=== PATIENT | female | born 1985 | race African-American/Black ===

== ENCOUNTER 2016-09-20 20:12 | Emergency (ER) | payer SELFPAY ==
[~2016-09-20] VITALS: Ht 182.9 cm; Wt 60.5 kg
[2016-09-20 20:15] VITALS: BP 124/59; PULSE 118; RESP 16; TEMP 101.2; O2SAT 95
--- NOTE | 2016-09-20 20:56 | PD ---
Physical Exam Time Seen by Provider: 20:53 Narrative 31 year old female presents to ED for evaluation of fever, body aches, fever, cough and chest congestion worsening over the last two days. Pt denies N/V. Has had an episode of diarrhea. No chest pain. Medical history is significant for asthma. No other symptoms to report. Data Data Last Documented VS Vital Signs Date Time Temp Pulse Resp B/P Pulse Ox O2 Delivery O2 Flow Rate FiO2 09/20/16 20:15 101.2 118 16 124/59 95 MDM Medical Record Reviewed: Yes Supervised Visit with ALFREDITO: No Narrative Course 31 year old female presents to ED for evaluation of fever, chills, body aches, cough, and chest congestion. Febrile and tachycardic in triage. Appears otherwise without distress. Scripts No Active Prescriptions or Reported Meds Condition: Stable Nicole Garcias Sep 20, 2016 20:56
[2016-09-20] MEDS ORDERED: SODIUM CHLOR 0.9% 1000 ML INJ 1,000 ML IV ONE (22:06)
[2016-09-20] MEDS ORDERED: SODIUM CHLOR 0.9% 1000 ML INJ 800 ML IV ONE (22:06)
[2016-09-20] MEDS ORDERED: ACETAMINOPHEN 325 MG TAB PO ONE (22:15)
--- NOTE | 2016-09-20 22:23 | RADRPT ---
EXAM DATE/TIME: 09/20/2016 22:03 [facility] COMPARISON: No previous studies available for comparison. INDICATIONS : Fever MEDICAL HISTORY : Asthma SURGICAL HISTORY : None. ENCOUNTER: Initial ACUITY: 3 days PAIN SCORE: 0/10 LOCATION: Bilateral chest FINDINGS: A single view of the chest demonstrates the lungs to be symmetrically aerated without evidence of mas s, infiltrate or effusion. The cardiomediastinal contours are unremarkable. Osseous structures are intact. CONCLUSION: No evidence of acute cardiopulmonary disease. Nasir Caldwell MD on September 20, 2016 at 22:21 Board Certified Radiologist. This report was verified electronically.
[2016-09-20 22:56] LABS: AUTOMATED NEUTROPHIL # 7.8 TH/MM3 (1.8-7.7); BASOPHIL # 0.1 TH/MM3 (0-0.2); BASOPHIL % 0.5 % (0.0-2.0); EOSINOPHIL # 0.2 TH/MM3 (0-0.4); EOSINOPHIL % 1.6 % (0.0-4.0); HEMATOCRIT 33.6 % (35.0-46.0); LYMPH % 14.8 % (9.0-44.0); LYMPHOCYTE # 1.6 TH/MM3 (1.0-4.8); MEAN CORPUSCULAR HEMOGLOBIN 21.8 PG (27.0-34.0); MEAN CORPUSCULAR HGB CONC 30.6 % (32.0-36.0); MONO % 9.7 % (0.0-8.0); NEUT % 73.4 % (16.0-70.0); PLATELET COUNT 340 TH/MM3 (150-450); RED BLOOD COUNT 4.73 MIL/MM3 (4.00-5.30); RED CELL DISTRIBUTION WIDTH 18.7 % (11.6-17.2); WHITE BLOOD COUNT 10.6 TH/MM3 (4.0-11.0)
[2016-09-20 23:01] LABS: HEMO FLAGS AUTO DIFF
[2016-09-20 23:23] LABS: ANION GAP 9 MEQ/L (5-15); AST (GOT) 17 U/L (15-37); BICARBONATE 25.2 MEQ/L (21.0-32.0); BLOOD UREA NITROGEN 8 MG/DL (7-18); CHLORIDE 103 MEQ/L (98-107); GLOMERULAR FILTRATION RATE 122 ML/MIN (>89); POTASSIUM 4.2 MEQ/L (3.5-5.1); SODIUM (NA) 137 MEQ/L (136-145)
[2016-09-20 23:27] LABS: ALKALINE PHOSPHATASE 78 U/L (45-117); ALT (GPT) 11 U/L (10-53); TOTAL BILIRUBIN ADULT 0.3 MG/DL (0.2-1.0)
--- NOTE | 2016-09-20 23:30 | PD ---
HPI Chief Complaint: Fever Time Seen by Provider: 22:05 Travel History International Travel<30 days: No Contact w/Intl Traveler<30days: No Traveled to known affect area: No History of Present Illness HPI 31-year-old female arrives with total body aches, rhinorrhea, dyspnea, cough, fever and chills. 2 days in duration. Unknown sick contacts. Patient smokes tobacco. She has a cough with phlegm. Severity moderate. Onset gradual. Timing constant. PFSH Past Medical History Asthma: Yes (AND BRONCHITIS) Diminished Hearing: No Immunizations Current: No Tetanus Vaccination: Unknown Influenza Vaccination: No ?: Not LMP: LAST WEEK : 2 Para: 1 Miscarriage: 1 : 1 Social History Alcohol Use: Yes (OCC) Tobacco Use: Yes (PT SMOKES BLACK AND MILDS, STATES SHE SMOKES "A LOT") Substance Use: No Allergies-Medications (Allergen,Severity, Reaction): Coded Allergies: Motrin (Verified Allergy, Intermediate, RASH, 09/20/16) Dust (Verified Allergy, Mild, AIRWAY REACTION, 09/20/16) Reported Meds & Prescriptions Reported Meds & Active Scripts Active Prednisone 20 Mg Tab 40 Mg PO DAILY 4 Days Take 40 mg (2 tablets) daily for 5 days Azithromycin 250 Mg Tab 250 Mg PO DAILY 4 Days Review of Systems Except as stated in HPI: all other systems reviewed are Neg General / Constitutional: Positive: Fever, Chills Respiratory: Positive: Cough, Shortness of Breath Physical Exam Narrative GENERAL: 31-year-old female well-nourished well-developed SKIN: Focused skin assessment warm/dry. HEAD: Atraumatic. Normocephalic. EYES: Pupils equal and round. No scleral icterus. No injection or drainage. ENT: No nasal bleeding or discharge. Mucous membranes pink and moist. NECK: Trachea midline. No JVD. CARDIOVASCULAR: Minimal tachycardia. Regular rhythm. RESPIRATORY: Wheezing bilaterally. Coarse breath sounds bilaterally. GASTROINTESTINAL: Abdomen soft, non-tender, nondistended. Hepatic and splenic margins not palpable. MUSCULOSKELETAL: No obvious deformities. No clubbing. No cyanosis. No edema. NEUROLOGICAL: Awake and alert. No obvious cranial nerve deficits. Motor grossly within normal limits. Normal speech. PSYCHIATRIC: Appropriate mood and affect; insight and judgment normal. Data Data Last Documented VS Vital Signs Date Time Temp Pulse Resp B/P Pulse Ox O2 Delivery O2 Flow Rate FiO2 4/18/17 01:35 98.7 104 19 117/64 97 09/21/16 00:12 22 Orders Complete Blood Count With Diff (09/20/16 22:06) Comprehensive Metabolic Panel (09/20/16 22:06) Lactic Acid Sepsis Protocol (09/20/16 22:06) Urinalysis - C+S If Indicated (09/20/16 22:06) Influenzae A/B Antigen (09/20/16 22:06) Blood Culture (09/20/16 22:06) Chest, Single Ap (09/20/16 22:06) Blood Glucose (09/20/16 22:06) Ecg Monitoring (09/20/16 22:06) Iv Access Insert/Monitor (09/20/16 22:06) Oximetry (09/20/16 22:06) Oxygen Administration (09/20/16 22:06) Acetaminophen (Tylenol) (09/20/16 22:15) Sodium Chlor 0.9% 1000 Ml Inj (Ns 1000 M (09/20/16 22:06) Sodium Chlor 0.9% 1000 Ml Inj (Ns 1000 M (09/20/16 22:06) Albuterol-Ipratropium Neb (Duoneb Neb) (09/20/16 23:30) Albuterol Hfa Inh (Proair Hfa Inh) (09/21/16 00:30) Methylprednisolone So Succ Inj (Solumedr (09/21/16 00:30) Labs Laboratory Tests Test 09/20/16 09/20/16 22:39 22:40 Sodium Level 137 MEQ/L Potassium Level 4.2 MEQ/L Chloride Level 103 MEQ/L Carbon Dioxide Level 25.2 MEQ/L Anion Gap 9 MEQ/L Blood Urea Nitrogen 8 MG/DL Creatinine 0.69 MG/DL Estimat Glomerular Filtration 122 ML/MIN Rate Random Glucose 89 MG/DL Calcium Level 9.1 MG/DL Total Bilirubin 0.3 MG/DL Aspartate Amino Transf 17 U/L (AST/SGOT) Alanine Aminotransferase 11 U/L (ALT/SGPT) Alkaline Phosphatase 78 U/L Total Protein 8.6 GM/DL Albumin 4.0 GM/DL White Blood Count 10.6 TH/MM3 Red Blood Count 4.73 MIL/MM3 Hemoglobin 10.3 GM/DL Hematocrit 33.6 % Mean Corpuscular Volume 71.0 FL Mean Corpuscular Hemoglobin 21.8 PG Mean Corpuscular Hemoglobin 30.6 % Concent Red Cell Distribution Width 18.7 % Platelet Count 340 TH/MM3 Mean Platelet Volume 8.6 FL Neutrophils (%) (Auto) 73.4 % Lymphocytes (%) (Auto) 14.8 % Monocytes (%) (Auto) 9.7 % Eosinophils (%) (Auto) 1.6 % Basophils (%) (Auto) 0.5 % Neutrophils # (Auto) 7.8 TH/MM3 Lymphocytes # (Auto) 1.6 TH/MM3 Monocytes # (Auto) 1.0 TH/MM3 Eosinophils # (Auto) 0.2 TH/MM3 Basophils # (Auto) 0.1 TH/MM3 CBC Comment AUTO DIFF Differential Comment AUTO DIFF CONFIRMED Lactic Acid Level 1.0 mmol/L [facility] Medical Decision Making Medical Screen Exam Complete: Yes Emergency Medical Condition: Yes Medical Record Reviewed: Yes Differential Diagnosis Pneumonia, UTI, influenza, viral syndrome, influenza Narrative Course CBC & BMP Diagram 09/20/16 22:39 Lactic acid 1.0 LFTs normal Last 24 hours Impressions Chest X-Ray 09/20/162205 Signed Impressions: Service Date/Time: Tuesday, September 20, 2016 22:03 - CONCLUSION: No evidence of acute cardiopulmonary disease. Nasir Caldwell MD Chest x-ray is read as normal however the patient has had a cough and shortness of breath along with fever and myalgias. Viral syndrome and/or pneumonia is of concern. We'll provide azithromycin and inhaler. Diagnosis Primary Impression: Fever Qualified Code: R50.9 - Fever, unspecified fever cause Additional Impressions: Cough Shortness of breath Referrals: Primary Care Physician 2 days Additional Instructions: You have a choice when it comes to health care, and we are glad that you chose [facility]. Hopefully, we have met your expectations on today's visit. You are welcome to return to [facility] at any time, as we are committed to meeting the health care needs of our community. Med/Other Pt SpecificInfo: Prescription(s) given Scripts Prednisone 20 Mg Tab40 Mg PO DAILY 4 Days Ref 0 Take 40 mg (2 tablets) daily for 5 days Prov:Surinder Tomas MD 4/18/17 Azithromycin 250 Mg [id number] Mg PO DAILY 4 Days Ref 0 Prov:Surinder Tomas MD 09/21/16 Disposition: 01 DISCHARGE HOME Condition: Stable Surinder Tomas MD Sep 20, 2016 23:30
[2016-09-21 00:12] VITALS: O2SAT 95
[2016-09-21] MEDS: RESP: ALBUTEROL 2.5 MG/IPRATROPIUM 0.5 MG NEB (SCH) INH ×2 (00:12→00:13)
[2016-09-21] MEDS ORDERED: AZIT250T3 PO (00:26)
[2016-09-21] MEDS ORDERED: PRED20 PO (00:26)
[2016-09-21] MEDS ORDERED: ALBUTEROL SULFATE 90 MCG/ACT HFA 8 GM INHALER INH ONE (00:30)
[2016-09-21] MEDS ORDERED: methylPREDNISolone SOD SUCC 125 MG/2 ML VIAL IV PUSH ONE (00:30)
[2016-09-21 01:15] LABS: SCAN/DIFF AUTO DIFF CONFIRMED
[2016-09-21 01:35] VITALS: BP 117/64; TEMP 98.7
== END 2016-09-21 01:55 | disposition home or self-care (01) ==
LOC: NEPD 20:12
DX: R50.9 Fever, unspecified (principal); R06.02 Shortness of breath; R05 Cough
CPT/HCPCS: 71010; 80053; 83605; 85025; 87040; 87804; 94640; 94664; 96374; 99283; J2930; J7030

== ENCOUNTER 2016-10-30 02:23 | Emergency (ER) | payer SELFPAY ==
[~2016-10-30 02:23] MED LIST: AZIT250T3 PO; PRED20 PO
[2016-10-30 02:26] VITALS: BP 129/59; PULSE 119; RESP 14; TEMP 102.4; O2SAT 94
--- NOTE | 2016-10-30 02:47 | PD ---
HPI Chief Complaint: Cold / Flu Symptoms Time Seen by Provider: 02:47 Travel History International Travel<30 days: No Contact w/Intl Traveler<30days: No Traveled to known affect area: No History of Present Illness HPI 31-year-old female came to the emergency room with history of fever and generalized body ache since yesterday. And says at home her temperature was 104. She took Motrin 800 mg prior to coming in. Her temperature here was 102. She is nauseous but no vomiting. She says she hurts everywhere. She has been coughing some but also has history of asthma. She was tachycardic in triage. Besides asthma she is otherwise a healthy person. She is not a smoker. No known sick contacts. [facility] Past Medical History Narrative Medical List of her past medical, surgical, social and family history was reviewed from the nursing note. Asthma: Yes (AND BRONCHITIS) Diminished Hearing: No Immunizations Current: No ?: Not : 2 Para: 1 Miscarriage: 1 : 1 Social History Alcohol Use: Yes ([facility]) Tobacco Use: Yes (PT SMOKES BLACK AND MILDS, STATES SHE SMOKES "A LOT") Substance Use: No Allergies-Medications (Allergen,Severity, Reaction): Coded Allergies: No Known Allergies (Unverified , 10/30/16) Comments No known drug allergies. Reported Meds & Prescriptions Reported Meds & Active Scripts Active Ventolin Hfa 18 GM Inh (Albuterol Sulfate) 90 Mcg/Act Aer 2 Puff INH Q4-6H PRN Prednisone 20 Mg Tab 40 Mg PO DAILY 4 Days Take 40 mg (2 tablets) daily for 5 days Azithromycin 250 Mg Tab 250 Mg PO DAILY 4 Days Narrative Medication List of her home medications reviewed from the nursing note. Review of Systems Except as stated in HPI: all other systems reviewed are Neg Physical Exam Narrative GENERAL: Awake, alert, moderate distress SKIN: Focused skin assessment warm/dry. HEAD: Atraumatic. Normocephalic. EYES: Pupils equal and round. No scleral icterus. No injection or drainage. ENT: No nasal bleeding or discharge. Mucous membranes pink and moist. NECK: Trachea midline. No JVD. CARDIOVASCULAR: Regular rate and rhythm. No murmur appreciated. RESPIRATORY: No accessory muscle use. Coarse breath sounds with some end expiratory wheeze. GASTROINTESTINAL: Abdomen soft, non-tender, nondistended. Hepatic and splenic margins not palpable. MUSCULOSKELETAL: No obvious deformities. No clubbing. No cyanosis. No edema. NEUROLOGICAL: Awake and alert. No obvious cranial nerve deficits. Motor grossly within normal limits. Normal speech. PSYCHIATRIC: Appropriate mood and affect; insight and judgment normal. Data Data Last Documented VS Vital Signs Date Time Temp Pulse Resp B/P Pulse Ox O2 Delivery O2 Flow Rate FiO2 10/30/16 07:49 99.4 110 18 128/61 95 10/30/16 07:46 Room Air Orders Complete Blood Count With Diff (10/30/16 02:48) Comprehensive Metabolic Panel (10/30/16 02:48) Lactic Acid Sepsis Protocol (10/30/16 02:48) Urinalysis - C+S If Indicated (10/30/16 02:48) Influenzae A/B Antigen (10/30/16 02:48) Blood Culture (10/30/16 02:48) Chest, Single Ap (10/30/16 02:48) Blood Glucose (10/30/16 02:48) Ecg Monitoring (10/30/16 02:48) Iv Access Insert/Monitor (10/30/16 02:48) Oximetry (10/30/16 02:48) Oxygen Administration (10/30/16 02:48) Sodium Chlor 0.9% 1000 Ml Inj (Ns 1000 M (10/30/16 02:48) Sodium Chlor 0.9% 1000 Ml Inj (Ns 1000 M (10/30/16 02:48) Sodium Chlor 0.9% 1000 Ml Inj (Ns 1000 M (10/30/16 02:48) Albuterol Neb (Albuterol Neb) (10/30/16 05:30) Albuterol Neb (Albuterol Neb) (10/30/16 06:30) Labs Laboratory Tests Test 10/30/16 10/30/16 10/30/16 02:34 03:45 04:51 Lactic Acid Level 0.8 mmol/L White Blood Count 4.4 TH/MM3 Red Blood Count 4.27 MIL/MM3 Hemoglobin 9.5 GM/DL Hematocrit 30.4 % Mean Corpuscular Volume 71.3 FL Mean Corpuscular Hemoglobin 22.2 PG Mean Corpuscular Hemoglobin 31.0 % Concent Red Cell Distribution Width 17.1 % Platelet Count 167 TH/MM3 Mean Platelet Volume 8.9 FL Neutrophils (%) (Auto) 78.3 % Lymphocytes (%) (Auto) 13.3 % Monocytes (%) (Auto) 7.9 % Eosinophils (%) (Auto) 0.0 % Basophils (%) (Auto) 0.5 % Neutrophils # (Auto) 3.5 TH/MM3 Lymphocytes # (Auto) 0.6 TH/MM3 Monocytes # (Auto) 0.4 TH/MM3 Eosinophils # (Auto) 0.0 TH/MM3 Basophils # (Auto) 0.0 TH/MM3 CBC Comment DIFF FINAL Differential Comment Sodium Level 134 MEQ/L Potassium Level 3.5 MEQ/L Chloride Level 99 MEQ/L Carbon Dioxide Level 26.1 MEQ/L Anion Gap 9 MEQ/L Blood Urea Nitrogen 10 MG/DL Creatinine 0.70 MG/DL Estimat Glomerular Filtration 120 ML/MIN Rate Random Glucose 89 MG/DL Calcium Level 8.2 MG/DL Total Bilirubin 0.3 MG/DL Aspartate Amino Transf 28 U/L (AST/SGOT) Alanine Aminotransferase 10 U/L (ALT/SGPT) Alkaline Phosphatase 58 U/L Total Protein 7.5 GM/DL Albumin 3.5 GM/DL Urine Color YELLOW Urine Turbidity HAZY Urine pH 5.5 Urine Specific [place] 1.009 Urine Protein NEG mg/dL Urine Glucose (UA) NEG mg/dL Urine Ketones 10 mg/dL Urine Occult Blood NEG Urine Nitrite NEG Urine Bilirubin NEG Urine Urobilinogen LESS THAN 2.0 MG/DL Urine Leukocyte Esterase NEG Urine RBC 1 /hpf Urine WBC 3 /hpf Urine Squamous Epithelial 1 /hpf Cells Urine Mucus MOD /lpf Microscopic Urinalysis Comment CATH-CULT NOT IND MDM Medical Decision Making Medical Screen Exam Complete: Yes Emergency Medical Condition: Yes Medical Record Reviewed: Yes Differential Diagnosis Pneumonia, UTI, sepsis, viral illness, influenza Narrative Course 5:25 AM blood test results came back and they're within acceptable limits. Chest x-ray was negative. Patient was given 2 albuterol nebulizers and I will discharge her home. She was given IV fluid boluses as well. Procedures EKG Prior to Arrival: No Diagnosis Primary Impression: Fever Qualified Code: R50.9 - Fever, unspecified fever cause Additional Impressions: Viral illness Anemia Qualified Code: D64.9 - Anemia, unspecified type Referrals: Primary Care Physician Additional Instructions: Continue taking Motrin and/or Tylenol for fever. Drink lots of fluid. Please return to the ER if the condition worsens or any other new concerns. Otherwise follow-up with your physician on Tuesday. Med/Other Pt SpecificInfo: Prescription(s) given, No Change to Meds Scripts Albuterol 18 GM Inh (Ventolin Hfa 18 GM Inh)90 Mcg/Act Aer2 Puff INH Q4-6H PRN ( SHORTNESS OF BREATH) #1 INHALER Ref 0 Prov:Selwyn Oshea MD 10/30/16 Disposition: 01 DISCHARGE HOME Condition: Stable Selwyn Oshea MD October 30, 2016 02:47
[2016-10-30] MEDS ORDERED: SODIUM CHLOR 0.9% 1000 ML INJ 1,000 ML IV ONE ×2 (02:48)
[2016-10-30] MEDS ORDERED: SODIUM CHLOR 0.9% 1000 ML INJ 400 ML IV ONE (02:48)
--- NOTE | 2016-10-30 03:08 | RADRPT ---
EXAM DATE/TIME: 10/30/2016 03:00 [facility] COMPARISON: CHEST SINGLE AP, September 20, 2016, 22:03. INDICATIONS : Fever, chills, and body aches x 1 day. MEDICAL HISTORY : None. SURGICAL HISTORY : None. ENCOUNTER: Initial ACUITY: 1 day PAIN SCORE: 7/10 LOCATION: Bilateral chest FINDINGS: A single view of the chest demonstrates the lungs to be symmetrically aerated without evidence of mas s, infiltrate or effusion. The cardiomediastinal contours are unremarkable. Osseous structures are intact. CONCLUSION: Normal examination. Ti De Souza MD on October 30, 2016 at 3:06 Board Certified Radiologist. This report was verified electronically.
[2016-10-30 03:26] VITALS: BP 119/61; PULSE 105; RESP 19; O2SAT 91
[2016-10-30 04:09] LABS: AUTOMATED NEUTROPHIL # 3.5 TH/MM3 (1.8-7.7); BASOPHIL % 0.5 % (0.0-2.0); HEMATOCRIT 30.4 % (35.0-46.0); HEMO FLAGS DIFF FINAL; LYMPH % 13.3 % (9.0-44.0); LYMPHOCYTE # 0.6 TH/MM3 (1.0-4.8); MEAN CELL VOLUME 71.3 FL (80.0-100.0); MEAN CORPUSCULAR HEMOGLOBIN 22.2 PG (27.0-34.0); MONO % 7.9 % (0.0-8.0); NEUT % 78.3 % (16.0-70.0); PLATELET COUNT 167 TH/MM3 (150-450); RED BLOOD COUNT 4.27 MIL/MM3 (4.00-5.30); RED CELL DISTRIBUTION WIDTH 17.1 % (11.6-17.2); WHITE BLOOD COUNT 4.4 TH/MM3 (4.0-11.0)
[2016-10-30 04:30] LABS: ANION GAP 9 MEQ/L (5-15); AST (GOT) 28 U/L (15-37); BICARBONATE 26.1 MEQ/L (21.0-32.0); BLOOD UREA NITROGEN 10 MG/DL (7-18); CHLORIDE 99 MEQ/L (98-107); GLOMERULAR FILTRATION RATE 120 ML/MIN (>89); POTASSIUM 3.5 MEQ/L (3.5-5.1); SODIUM (NA) 134 MEQ/L (136-145)
[2016-10-30 04:34] LABS: ALKALINE PHOSPHATASE 58 U/L (45-117); ALT (GPT) 10 U/L (10-53); TOTAL BILIRUBIN ADULT 0.3 MG/DL (0.2-1.0)
[2016-10-30 05:00] LABS: BLOOD, URINE NEG (NEG); COMMENT (UR) CATH-CULT NOT IND; CULTURE IF INDICATED CATH CULTURE NOT IND; GLUCOSE,URINE NEG (NEG); KETONE, URINE 10 mg/dL (NEG); MUCUS URINE MOD /lpf (OCC); NITRITE,URINE NEG (NEG); PH, URINE 5.5 (5.0-8.5); SQUAMOUS EPITHELIAL CELL URINE 1 /hpf (0-5); URINE COLOR YELLOW (YELLW/STRAW)
[2016-10-30] MEDS ORDERED: VENTAER INH (05:22)
[2016-10-30 05:59] VITALS: O2SAT 94
[2016-10-30] MEDS: RESP: ALBUTEROL 2.5 MG/3 ML NEB (SCH) INH (05:59)
[2016-10-30] MEDS ORDERED: RESP: ALBUTEROL 2.5 MG/3 ML NEB (SCH) NEB ONE (06:30)
[2016-10-30 06:33] VITALS: O2SAT 96
[2016-10-30 07:46] VITALS: BP 128/61; PULSE 110; RESP 18; TEMP 99.4; O2SAT 95
[2016-10-30 07:49] VITALS: BP 128/61; TEMP 99.4
== END 2016-10-30 08:11 | disposition home or self-care (01) ==
LOC: NEPE 02:23
DX: R50.9 Fever, unspecified (principal); B34.9 Viral infection, unspecified; D64.9 Anemia, unspecified; F17.210 Nicotine dependence, cigarettes, uncomplicated; R11.0 Nausea; J45.909 Unspecified asthma, uncomplicated
CPT/HCPCS: 71010; 80053; 81001; 83605; 85025; 87040; 87804; 94640; 94664; 96360; 99284; J7030; J7613

== ENCOUNTER 2017-05-09 11:38 | Emergency (ER) | payer SELFPAY ==
[~2017-05-09 11:38] MED LIST changes: +VENTAER INH
[2017-05-09 11:39] VITALS: BP 117/70; PULSE 94; RESP 16; TEMP 98; O2SAT 100
--- NOTE | 2017-05-09 13:42 | RADRPT ---
EXAM DATE/TIME: 05/09/2017 12:27 [facility] COMPARISON: No previous studies available for comparison. INDICATIONS : Patient states right hip pain after falling down the stairs this morning. MEDICAL HISTORY : None. SURGICAL HISTORY : Right Hip pin ENCOUNTER: Initial ACUITY: 1 day PAIN SCORE: 8/10 LOCATION: Right Hip FINDINGS: AP view of the pelvis with 3 views of the right hip joint demonstrate no fracture or dislocation. Min eralization is within normal limits. Left hip joint is normal. The right proximal femur demonstrates abnormal shape of the head and neck suggesting an old healed slipped capital femoral purposes. A sing le screw traverses the femoral head and neck. There are osteophytes on the femoral head neck junction and there is joint space narrowing and acetabular osteophyte. No soft tissue abnormality or radiopaq ue foreign body is identified. CONCLUSION: 1. No acute right hip abnormality is identified. 2. 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 Nasir Schilling MD on May 09, 2017 at 13:32 Board Certified Radiologist. This report was verified electronically.
--- NOTE | 2017-05-09 13:44 | PD ---
HPI . Slip and fall Chief Complaint: Injury Time Seen by Provider: 12:42 Travel History International Travel<30 days: No Contact w/Intl Traveler<30days: No Traveled to known affect area: No History of Present Illness HPI 31-year-old female presents emergency department for evaluation after slipping while walking down stairs this morning. Patient has right knee pain and right hip pain after falling. Patient denies hitting her head or losing consciousness. Patient is not on any blood thinners. Patient has been ambulatory since the fall. Patient denies any chest pain, shortness breath, nausea, vomiting, diarrhea, abdominal pain, lightheadedness or dizziness. PFSH Past Medical History Asthma: Yes (AND BRONCHITIS) Diminished Hearing: No Immunizations Current: No ?: Not : 2 Para: 1 Miscarriage: 1 : 1 Social History Alcohol Use: Yes (OCC) Tobacco Use: Yes (PT SMOKES BLACK AND MILDS, STATES SHE SMOKES "A LOT") Substance Use: No Allergies-Medications (Allergen,Severity, Reaction): Coded Allergies: No Known Allergies (Unverified , 10/30/16) Reported Meds & Prescriptions Reported Meds & Active Scripts Active Ventolin Hfa 18 GM Inh (Albuterol Sulfate) 90 Mcg/Act Aer 2 Puff INH Q4-6H PRN Prednisone 20 Mg Tab 40 Mg PO DAILY 4 Days Take 40 mg (2 tablets) daily for 5 days Azithromycin 250 Mg Tab 250 Mg PO DAILY 4 Days Review of Systems Except as stated in HPI: all other systems reviewed are Neg Physical Exam Narrative GENERAL: Well-nourished, well-developed 31-year-old female patient in no acute distress. Nontoxic appearing. SKIN: Focused skin assessment warm/dry. HEAD: Normocephalic. Atraumatic. EYES: No scleral icterus. No injection or drainage. NECK: Supple, trachea midline. No JVD or lymphadenopathy. CARDIOVASCULAR: Regular rate and rhythm without murmurs, gallops, or rubs. Pedal pulses +2 bilaterally. RESPIRATORY: Breath sounds equal bilaterally. No accessory muscle use. GASTROINTESTINAL: Abdomen soft, non-tender, nondistended. MUSCULOSKELETAL: Right knee edematous. Full range of motion with extension and slightly limited range of motion with flexion. No obvious deformity, erythema or cyanosis.. BACK: Nontender without obvious deformity. No CVA tenderness. Data Data Last Documented VS Vital Signs Date Time Temp Pulse Resp B/P (MAP) Pulse Ox O2 Delivery O2 Flow Rate FiO2 05/09/17 11:39 98.0 94 16 117/70 (86) 100 Orders Orders Hip, Uni(Ap&Lat) W Ap Pelvis (05/09/17 ) Knee, Complete (4vws) (05/09/17 ) MDM Medical Decision Making Medical Screen Exam Complete: Yes Emergency Medical Condition: Yes Differential Diagnosis Differential diagnoses include but not limited to right knee sprain, right knee strain, right knee contusion, right hip contusion, fracture, fall Narrative Course 31-year-old female presents to emergency room for evaluation of right hip pain and right knee pain after slipping and falling this point. X-ray of the right knee and hip ordered and pending. No acute abnormality noted in the right hip x -ray. Effusion of the right knee noted in the right knee x-ray. Patient is discharged with Rice therapy instructions for the right knee and the knee is Michael wrap and patient discharged with crutches. Patient instructed to return the emergency Department with any worsening condition and to follow-up with orthopedics for possible draining of the effusion. Last Impressions Knee X-Ray 05/09/17 0000 Signed Impressions: Service Date/Time: Tuesday, May 09, 2017 12:27 - CONCLUSION: Large joint effusion. No acute osseous abnormality is identified. Nasir Schilling MD Hip and Pelvis X-Ray 05/09/17 0000 Signed Impressions: Service Date/Time: Tuesday, May 09, 2017 12:27 - CONCLUSION: 1. No acute right hip abnormality is identified. 2. 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 Nasir Schilling MD Diagnosis Primary Impression: Effusion, right knee Referrals: Juliocesar Chavez MD Orthopedist Additional Instructions: Please return to emergency department if your symptoms return or worsen. Follow up with orthopedics for possible draining of the effusion of the right knee. May take [id number] ibuprofen to help with the pain and swelling. Ice therapy to right knee, rest, ice, Michael wrap with activity and elevate with resting. Crutches until symptoms resolve. Disposition: 01 DISCHARGE HOME Condition: Stable Verito Campbell Jolly LY May 09, 2017 13:44
--- NOTE | 2017-05-09 13:44 | RADRPT ---
EXAM DATE/TIME: 05/09/2017 12:27 [facility] COMPARISON: No previous studies available for comparison. INDICATIONS : Patient states right knee pain after falling down stairs this morning. MEDICAL HISTORY : None. SURGICAL HISTORY : None. ENCOUNTER: Initial ACUITY: 1 day PAIN SCORE: 8/10 LOCATION: Right Knee FINDINGS: 4 views of the right knee demonstrate no fracture or dislocation. Mineralization is normal. There are small osteophytes at the superior pole the patella. Large joint effusion is present. No soft tissue abnormality or radiopaque foreign body is identified. CONCLUSION: Large joint effusion. No acute osseous abnormality is identified. Nasir Schilling MD on May 09, 2017 at 13:40 Board Certified Radiologist. This report was verified electronically.
== END 2017-05-09 14:57 | disposition home or self-care (01) ==
LOC: NEPK 11:38
DX: M25.461 Effusion, right knee (principal); M16.11 Unilateral primary osteoarthritis, right hip; J45.909 Unspecified asthma, uncomplicated; Z72.0 Tobacco use; Z79.51 Long term (current) use of inhaled steroids; Z79.899 Other long term (current) drug therapy
CPT/HCPCS: 73502; 73564; 99284; E0113; L1830

== ENCOUNTER 2017-06-16 20:54 | Emergency (ER) | payer SELFPAY ==
[~2017-06-16] VITALS: Ht 182.9 cm; Wt 63.6 kg
[2017-06-16 20:55] VITALS: BP 115/70; PULSE 97; RESP 16; TEMP 98.5; O2SAT 99
--- NOTE | 2017-06-16 23:36 | PD ---
HPI Chief Complaint: Skin Problem Time Seen by Provider: 23:11 Travel History International Travel<30 days: No Contact w/Intl Traveler<30days: No Traveled to known affect area: No History of Present Illness HPI Patient is a 32-year-old female who 48 hours has had papules on her face arms and chest. She thinks it is secondary to new body wash that she recently used. She cannot think of any other allergen that could've caused this she denies any new sheets any new laundry soap any new exposures no Raf the family has it she has no bites to think that it could be scabies or that it could be bed bugs she has no signs of that whatsoever it seems like an atopic reaction to a soap. Patient has no airway involvement no shortness of breath no sore throat no lip swelling no stridor no wheeze she took Benadryl with moderate relief but continues PFSH Past Medical History Asthma: Yes (AND BRONCHITIS) Diminished Hearing: No Immunizations Current: Yes ?: Not LMP: 06/14/2017 : 2 Para: 1 Miscarriage: 1 : 1 Social History Alcohol Use: Yes (OCC) Tobacco Use: Yes (PT SMOKES BLACK AND MILDS, STATES SHE SMOKES "A LOT") Substance Use: No Allergies-Medications (Allergen,Severity, Reaction): Coded Allergies: No Known Allergies (Unverified Adverse Reaction, Unknown, 06/16/17) Reported Meds & Prescriptions Reported Meds & Active Scripts Active Diphenhydramine (Diphenhydramine HCl) 25 Mg Cap 25 Mg PO Q6H PRN Hydrocortisone Topical 1% Cream 1 Applic TOPICAL BID Prednisone 50 Mg Tab 50 Mg PO DAILY Ventolin Hfa 18 GM Inh (Albuterol Sulfate) 90 Mcg/Act Aer 2 Puff INH Q4-6H PRN Review of Systems Except as stated in HPI: all other systems reviewed are Neg Skin: Positive Rash, Positive Itching Physical Exam Narrative GENERAL: In no distress no risk for distress, waiting in the exam room SKIN: Warm and dry. Patient has raised bumps on her maxillary areas around her eyes and on her neck on her arms HEAD: Atraumatic. Normocephalic. EYES: Pupils equal and round. No scleral icterus. No injection or drainage. ENT: No nasal bleeding or discharge. Mucous membranes pink and moist. Posterior pharynx is completely normal there is no swelling of the airway no uvula involvement lips are normal NECK: Trachea midline. No JVD. CARDIOVASCULAR: Regular rate and rhythm. RESPIRATORY: No accessory muscle use. Clear to auscultation. Breath sounds equal bilaterally. Eyes are clear no wheeze GASTROINTESTINAL: Abdomen soft, non-tender, nondistended. Hepatic and splenic margins not palpable. MUSCULOSKELETAL: Extremities without clubbing, cyanosis, or edema. No obvious deformities. NEUROLOGICAL: Awake and alert. No obvious cranial nerve deficits. Motor grossly within normal limits. Five out of 5 muscle strength in the arms and legs. Normal speech. PSYCHIATRIC: Appropriate mood and affect; insight and judgment normal. Data Data Last Documented VS Vital Signs Date Time Temp Pulse Resp B/P (MAP) Pulse Ox O2 Delivery O2 Flow Rate FiO2 06/16/17 23:59 06/16/17 23:16 14 06/16/17 20:55 98.5 97 99 Room Air Orders Orders Prednisone (Deltasone) (06/16/17 23:45) Ed Discharge Order (06/16/17 23:45) [facility] Medical Decision Making Medical Screen Exam Complete: Yes Emergency Medical Condition: Yes Differential Diagnosis Allergic reaction Narrative Course prednisone and Rx from Benadryl and Prednisone follow up as outpt Diagnosis Primary Impression: Allergic Qualified Codes: T78.40XA - Allergy, unspecified, initial encounter Additional Impression: Rash Patient Instructions: General Allergic Reaction (ED), General Instructions Additional Instructions: Take the Benadryl every 6 hours for the next 5 days. Take the prednisone once a day for the next 3 days. Applied the topical cream twice a day for the next 5 days. Return to the ER if it worsens Scripts Diphenhydramine (Diphenhydramine) 25 Mg Cap 25 MG PO Q6H Y for ALLERGIES, #20 CAP 0 Refills Prov: Nadir Tse MD 06/16/17 Hydrocortisone Topical (Hydrocortisone Topical) 1% Cream 1 APPLIC TOPICAL BID for Rash/Inflammation, #30 GM 0 Refills Prov: Nadir Tse MD 06/16/17 Prednisone (Prednisone) 50 Mg Tab 50 MG PO DAILY, #3 TAB 0 Refills Prov: Nadir Tse MD 06/16/17 Disposition: 01 DISCHARGE HOME Condition: Good Nadir Tse MD Jun 16, 2017 23:36
[2017-06-16] MEDS ORDERED: PRED50 PO (23:43)
[2017-06-16] MEDS ORDERED: HYDR1CRE TOPICAL (23:43)
[2017-06-16] MEDS ORDERED: DIPH25CA PO (23:44)
[2017-06-16] MEDS ORDERED: predniSONE 20 MG TAB PO ONE (23:45)
== END 2017-06-17 00:12 | disposition home or self-care (01) ==
LOC: NEPC 20:54
DX: T78.40XA Allergy, unspecified, initial encounter (principal); R21 Rash and other nonspecific skin eruption; J45.909 Unspecified asthma, uncomplicated; F17.290 Nicotine dependence, other tobacco product, uncomplicated
CPT/HCPCS: 99284; J7512